=== PATIENT | female | born 1950 | race Caucasian/White ===

== ENCOUNTER 2019-02-18 16:30 | Outpatient (REF) | payer MEDICARE, OTHER, SELFPAY ==
[2019-02-18 22:29] LABS: Bacteria Many HPF (Negative); Crystals Negative HPF (Negative); Epithelial Cells Rare HPF (Negative); RBC Negative (0-2)
[2019-02-18 22:30] LABS: C & S Indicated? Yes; Mucus Negative (Negative)
== END 2019-02-18 16:50 ==
LOC: NCHCN 16:30
PROVIDERS: PCP Internal Medicine; Visit Provider Specialist/Technologist Athletic Trainer
DX: R35.0 Frequency of micturition (principal); N32.9 Bladder disorder, unspecified
CPT/HCPCS: 87077; 81015; 87086; 87186

== ENCOUNTER 2019-03-08 10:49 | Outpatient (CLI) | payer MEDICARE, OTHER, SELFPAY ==
--- NOTE | 2019-03-08 10:54 | DI.RAD_ITS ---
SYMPTOMS/DIAGNOSIS: RT WRIST PAIN, M25.531, MPM TRAUMATIC PAIN X 1 MONTH RIGHT WRIST: Three views. No priors. No acute fracture or dislocation is seen. There are post surgical changes of resection of the trapezium. There is deformity of the distal scaphoid which is likely chronic. The bones appear osteopenic. The soft tissues are unremarkable. IMPRESSION: Post surgical changes of the right wrist. No acute abnormality.
== END 2019-03-08 11:09 ==
PROVIDERS: PCP Internal Medicine; Visit Provider Internal Medicine
DX: M25.531 Pain in right wrist (principal); M85.88 Other specified disorders of bone density and structure, other site; Z98.890 Other specified postprocedural states
CPT/HCPCS: 73110

== ENCOUNTER → 2019-07-02 14:38 | Outpatient (BNVA) | payer MEDICARE, OTHER, SELFPAY | PROVIDERS: PCP Internal Medicine; Referring Provider Internal Medicine; Visit Provider Student in an Organized Health Care Education/Training Program | DX: M18.11 Unilateral primary osteoarthritis of first carpometacarpal joint, right hand (principal) | CPT/HCPCS: 99203; 99215 ==

== ENCOUNTER 2019-07-18 15:35 | Outpatient (REF) | payer MEDICARE, OTHER, SELFPAY ==
[2019-07-18 21:34] LABS: Calculated LDL 148 mg/dL; Cholesterol 220 mg/dL (50-200); HDL Cholesterol 43 mg/dL (40-60); Triglyceride 149 mg/dL (30-150)
== END 2019-07-18 15:55 ==
LOC: NCHCN 15:35
PROVIDERS: PCP Internal Medicine; Visit Provider Internal Medicine
DX: Z13.6 Encounter for screening for cardiovascular disorders (principal); R69 Illness, unspecified
CPT/HCPCS: 80061

== ENCOUNTER 2020-02-20 12:14 | Outpatient (CLI) | payer MEDICARE, OTHER, SELFPAY ==
--- NOTE | 2020-02-20 11:15 | DI.RAD_ITS ---
EXAM: XR WRIST RT COMPLETE CLINICAL HISTORY: right wrist pain TECHNIQUE: COMPARISON: No exams were available for comparison FINDINGS: Five views were obtained. There is absence of the greater multangular, presumably on a surgical basi s. Please correlate with surgical history. There are marked degenerative changes at lesser multangu lar 1st metacarpal joint. Mild degenerative changes noted involving remainder of the carpal joints. There is deformity of the distal aspect of the navicular, the base of the 1st metacarpal, and metaca rpal aspect of the lesser multangular. IMPRESSION:
== END 2020-02-20 12:34 ==
PROVIDERS: PCP Internal Medicine; Referring Provider Internal Medicine; Visit Provider Student in an Organized Health Care Education/Training Program
DX: M25.531 Pain in right wrist (principal); M18.11 Unilateral primary osteoarthritis of first carpometacarpal joint, right hand
CPT/HCPCS: 99213; 73110

== ENCOUNTER → 2020-09-14 13:54 | Outpatient (BNVA) | payer MEDICARE, OTHER, SELFPAY | PROVIDERS: PCP Internal Medicine; Referring Provider Internal Medicine; Visit Provider Nurse Practitioner Gerontology | DX: N39.46 Mixed incontinence (principal) | CPT/HCPCS: 99204; 99215 ==

== ENCOUNTER 2020-09-17 03:41 | Outpatient (CLI) | payer MEDICARE, OTHER, SELFPAY ==
--- NOTE | 2020-09-17 | DI.DEXA_ITS ---
EXAM: XR DEXA BONE DENSITY W/WO NANCY CLINICAL HISTORY: SCREENING FOR OSTEOPOROSIS IN POSTMENOPAUSAL WOMAN,Z78.0,H/O BREAST CA,Z85. TECHNIQUE: COMPARISON: No exams were available for comparison FINDINGS: DEXA scan was performed according to the usual protocol. Please see the accompanying data sheets. F indings for left hip scanning are T-score -0.7 with left femoral neck T-score -1.9. Findings for left forearm scanning are T-score -2.2 Prior scan April 2015 showed left hip T-score -0.3 and left forearm T-score -1.0. There are Villegas rods in the thoracolumbar spine bilaterally. The lateral vertebral scanogram is technically inadequate to exclude compression fracture. IMPRESSION: Findings consistent with osteopenia according to the WHO criteria. RADIATION DOSE DELIVERED: Total DLP
== END 2020-09-17 04:01 ==
PROVIDERS: PCP Internal Medicine; Visit Provider Internal Medicine
DX: Z78.0 Asymptomatic menopausal state (principal); M85.89 Other specified disorders of bone density and structure, multiple sites; Z85.3 Personal history of malignant neoplasm of breast
CPT/HCPCS: 77080

== ENCOUNTER → 2020-10-15 10:05 | Outpatient (BNVA) | payer MEDICARE, OTHER, SELFPAY | PROVIDERS: PCP Internal Medicine; Referring Provider Internal Medicine; Visit Provider Nurse Practitioner Gerontology | DX: N39.46 Mixed incontinence (principal) | CPT/HCPCS: 99213 ==

== ENCOUNTER → 2020-10-15 11:33 | Outpatient (BNVA) | payer MEDICARE, OTHER, SELFPAY | PROVIDERS: PCP Internal Medicine; Referring Provider Internal Medicine; Visit Provider Physical Therapy Assistant | DX: Z12.11 Encounter for screening for malignant neoplasm of colon (principal); Z86.010 Personal history of colon polyps ==

== ENCOUNTER 2020-10-16 02:10 | Outpatient (CLI) | payer MEDICARE, OTHER, SELFPAY ==
[2020-10-17 15:33] LABS: COVID-19 RT-PCR UVMMC Result Negative (Negative)
== END 2020-10-16 02:30 ==
PROVIDERS: PCP Internal Medicine; Visit Provider Nurse Practitioner
DX: Z11.59 Encounter for screening for other viral diseases (principal); Z01.818 Encounter for other preprocedural examination
CPT/HCPCS: U0003

== ENCOUNTER 2020-10-27 02:55 | Outpatient (CLI) | payer MEDICARE, OTHER, SELFPAY ==
[2020-10-28 17:18] LABS: COVID-19 RT-PCR UVMMC Result Negative (Negative)
== END 2020-10-27 03:15 ==
PROVIDERS: PCP Internal Medicine; Visit Provider Surgery
DX: Z11.52 Encounter for screening for COVID-19 (principal); Z01.818 Encounter for other preprocedural examination
CPT/HCPCS: U0003

== ENCOUNTER 2020-10-30 06:10 | Day surgery (SDC) | payer MEDICARE, OTHER, SELFPAY ==
[2020-10-30 06:45] VITALS: BP 139/83; PULSE 86; RESP 18; TEMP 36.6; O2SAT 94
[2020-10-30] MEDS: Lactated Ringers 1,000 ML 80 ML IV (07:10)
--- NOTE | 2020-10-30 08:00 | BOWEL_PTH ---
PATIENT: Lucy Larry LOC: [facility] U#:[id number] AGE/SX: 70/F ROOM: RE10/30/[address]: Dorys Cleveland : 1950 BED: DIS: 10/30/2020 SPEC #: [id number] RECD: 10/30/20 12:17 STATUS: SARAH RE #: [id number] SILVIA: 10/30/20 08:[address]: Dorys Cleveland DEPT: Surgical Specimen RECD BY: Radha Qureshi ENTERED: 10/30/20 12:18 SP TYPE: Bowel OTHR DR: Niles Barnett Tissues: 1 - BIOPSY BOWEL 2 - BIOPSY BOWEL Procedures: GROSS AND MICRO LEVEL 4 Comments: [id number]
--- NOTE | 2020-10-30 08:33 | W.COLOREPORT ---
Date of service: 10/30/20 Time of Service: 08:33 Colonoscopy Report Date of procedure: 10/30/20 Pre-op diagnosis general: hx of polyps Post-op diagnosis procedure note: other (severe diverticula/rectal prolapse ) Surgeon: Dorys Cleveland Anesthesia proc note operative: GETA Estimated blood loss (mL): 3 Pathology: other Disposition: same day Prep: Miralax/Dulcolax Retraction Time: 15 mins Procedure Description: After informed consent was obtained the patient was taken to the procedure room and placed in a left decubitous position. Monitors were applied and a time out was done. The patients name, date of , procedure, allergies to medications and metal in their body was reviewed. The patient was then sedated. Once sedated and comfortable a rectal exam was done. External exam was normal. Internal exam revealed a normal sphincter tone and no palpable masses. small inflammed ext hemorrhoid The scope was then introduced and retrofelexed. grade I internal hemorrhoids were identified. The scope was then advanced to the cecum w/out difficulty. The TI and appendiceal orifice were identified. The prep was good. The scope was then slowly retracted over 15 minutes back into the rectum. Polyps were removed at : Small flat polyp at 90 cm that is removed with a hot biting forcep- it is .75 cm in size. x3, 5 mm polyp removed at 20 cm removed by a by cold biting forcep. All specimens are retrieved and no bleeding is noted. She does have severe diverticular disease that is confined to the sigmoid colon. There is no signs of active bleeding or infection at this time. Her diverticula are quite large and very numerous. The scope was removed and the patient was woken up and taken back to Same day surgery in stable condition. The patient tolerated the procedure well and there were no immediate complications. Follow up: I will see what the pathology shows on her polyps. If they are simple adenomatous polyps, I do not think I would recommend repeat colonoscopy in her because of the severity of her diverticula. the risk of perforation outweighs the risk of colon cancer, unless they develop changes in bowel habits or other new gastrointestinal complaints.
[2020-10-30 08:59] VITALS: BP 130/74; PULSE 94; RESP 18; TEMP 36.3; O2SAT 94
--- NOTE | 2020-10-30 09:19 | PDOC.DSDIS_ITS ---
Discharge Plan Disposition Patient Disposition: HOME Condition: Good Discharge Details Reason For Visit: colon scope Attending Provider: Dorys Cleveland Primary Care Provider: Niles Barnett Home Meds and New Rx's Prescriptions: Continued Myrbetriq 50 mg tablet extended release 24 hr 50 mg PO DAILY Qty: 28 RF: 0 meloxicam 7.5 mg tablet 7.5 mg PO DAILY RF: 0 acetaminophen [Tylenol Extra Strength] 500 mg tablet 1,000 mg PO Q6H PRNRF: 0 Vitamin C 1,000 MG tablet extended release 1,000 mg PO BID RF: 0 ipratropium bromide 30 ML spray,non-aerosol 2 spry NS BID PRNRF: 0 cholecalciferol (vitamin D3) [Vitamin D3] 1,000 UNIT capsule 1,000 unit PO BID RF: 0 omeprazole magnesium [Prilosec OTC] 20 MG tablet,delayed release (DR/EC) 2 tab PO DAILY RF: 0 calcium carbonate 600 MG tablet 600 mg PO DAILY Qty: 2 RF: 0 MULTIVITAMIN tablet PO DAILY RF: 0 omega 8-zge-wrp-fish oil [Fish Oil] 1,000 MG capsule 1,000 mg PO DAILY RF: 0 loratadine 10 mg tablet 10 mg PO DAILY RF: 0 Denavir 1 % cream 1 applic topical ONCE PRNRF: 0 tumeric 500 mg PO DAILY RF: 0 nrlal-gyxos-1-fls-chq-tpdsuh [krill oil] 092-10-33-50 mg capsule 1 cap PO DAILY RF: 0 CBD oil 1,000 mg PO BID RF: 0 Discontinued bisacodyl [Dulcolax (bisacodyl)] 5 mg tablet,delayed release (DR/EC) 5 mg PO ONCE Qty: 4 RF: 0 polyethylene glycol 3350 17 gram/dose powder 17 g PO ONCE Qty: 238 RF: 0 Discharge Instructions Additional Instructions: Findings: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 The risk of perforation of the diverticula is higher than the risk of possible polyp recorence Please call if you develop: fevers >101.5 Nausea or Vomiting Abdominal pain that is not transient DAY SURGERY UNIT POST COLONOSCOPY INSTRUCTIONS 1. Because there will be medication in your system for the next 24 hours, you may feel a little sleepy. Your coordination will be affected. Therefore: a. Do not drive or operate dangerous equipment for 24 hours. b. Do not drink alcohol beverages for 24 hours (not even beer). c. Plan to go home and rest for the day. 2. Generally there are no restrictions on your activity after a day or so has gone by, but you may feel a bit fatigued for a few days. 3 After you arrive home you may have a light meal and return to a normal diet as you can tolerate it without feeling sick to your stomach. 4. After surgery, you may feel pain or discomfort. This should be only transi ent, but if it persists please contact your doctor. 5. If there are any questions regarding the findings of your procedure, please feel free to contact your doctor. 6. If you are unable to contact your doctor with a problem, contact the hospital at [phone]. 7. Continue all your regular medications unless directed otherwise. I understand the above instructions and have no questions. Signature of Patient or Responsible Adult Escort Date/Time Name of Responsible Adult Escort Signature of Nurse Date/Time DIVERTICULAR DISEASE OVERVIEW ? A diverticulum is a pouch-like structure that can form through points of weakness in the muscular wall of the colon (ie, at points where blood vessels pass through the wall). Diverticulosis affects men and women equally. The risk of diverticular disease increases with age. It occurs throughout the world but is seen more commonly in developed countries. WHAT IS DIVERTICULAR DISEASE? Diverticulosis ? Diverticulosis merely describes the presence of diverticula. Diverticulosis is often found during a test done for other reasons, such as flexible sigmoidoscopy, colonoscopy, or barium enema. Most people with diverticulosis have no symptoms and will remain symptom free for the rest of their lives. A person with diverticulosis may have diverticulitis, or diverticular bleeding. Diverticulitis ? Inflammation of a diverticulum (diverticulitis) occurs when there is thinning and breakdown of the diverticular wall. This may be caused by increased pressure within the colon or by hardened particles of stool, which can become lodged within the diverticulum. The symptoms of diverticulitis depend upon the degree of inflammation present. The most common symptom is pain in the left lower abdomen. Other symptoms can include nausea and vomiting, constipation, diarrhea, and urinary symptoms such as pain or burning when urinating or the frequent need to urinate. Diverticulitis is divided into simple and complicated forms. ?Simple diverticulitis, which accounts for 75 percent of cases, is not associated with complications and typically responds to medical treatment without surgery. ?Complicated diverticulitis occurs in 25 percent of cases and usually requires surgery. Complications associated with diverticulitis can include the following: ?Abscess ? a localized collection of pus ?Fistula ? an abnormal tract between two areas that are not normally connected (eg, bowel and bladder) ?Obstruction ? a blockage of the colon ?Peritonitis ? infection involving the space around the abdominal organ ?Sepsis ? overwhelming body-wide infection that can lead to failure of multiple organs Diverticular bleeding ? Diverticular bleeding occurs when a small artery located within a diverticulum is eroded and bleeds into the colon. Diverticular bleeding usually causes painless bleeding from the rectum. In approximately 50 percent of cases, the person will see maroon or bright red blood with bowel movements. Is bleeding with a bowel movement normal? ? It is not normal to see blood in a bowel movement; this can be a sign of several conditions, most of which are not serious (eg, hemorrhoids) but some of which are serious and require immediate treatment. Anyone who sees blood after a bowel movement should consult with their healthcare provider to determine if further testing or evaluation is needed. DIVERTICULOSIS AND DIVERTICULITIS DIAGNOSIS ? Diverticulosis is often found during tests performed for other reasons. ?Barium enema ? This is an x-ray study that uses barium in an enema to view the outline of the lower intestinal tract. This is an older test and has been largely replaced by computed tomography (CT) scan. ?Flexible sigmoidoscopy ? This is an examination of the inside of the sigmoid colon with a thin, flexible tube that contains a camera. ?Colonoscopy ? This is an examination of the inside of the entire colon. ?CT scan ? A CT scan is often used to diagnose diverticulitis and its complications. If diverticulitis (not just diverticulosis) is suspected, the above three tests should not be used because of the risk of perforation. TREATMENT Diverticulosis ? People with diverticulosis who do not have symptoms do not require treatment. However, most clinicians recommend increasing fiber in the diet, which can help to bulk the stools and possibly prevent the development of new diverticula, diverticulitis, or diverticular bleeding. Fiber is not proven to prevent these conditions in all patients but may help to control recurrent episodes in some. Increase fiber ? Fruits and vegetables are a good source of fiber. Fiber content of packaged foods can be calculated by reading the nutrition label. Seeds and nuts ? Patients with diverticular disease have historically been advised to avoid whole pieces of fiber (such as seeds, corn, and nuts) because of concern that these foods could cause an episode of diverticulitis. However, this belief is completely unproven. We do not suggest that patients with dive rticulosis avoid seeds, corn, or nuts. Diverticulitis ? Treatment of diverticulitis depends upon how severe your symptoms are. Home treatment ? If you have mild symptoms of diverticulitis (mild abdominal pain, usually left lower abdomen), you can be treated at home with a clear liquid diet and oral antibiotics. However, if you develop one or more of the following signs or symptoms, you should seek immediate medical attention: ?Temperature >100.1?F (38?C) ?Worsening or severe abdominal pain ?An inability to tolerate fluids Hospital treatment ? If you have moderate to severe symptoms, you may be hospitalized for treatment. During this time, you are not allowed to eat or drink; antibiotics and fluids are given into a vein. If you develop an abscess of the colon, you may require drainage of the abscess (usually performed by placing a drainage tube across the abdominal wall) or by surgically opening the affected area. Surgery ? If you develop a generalized infection in the abdomen (peritonitis), you will usually require an emergency operation. A two-part operation may be necessary in some cases. ?The first operation involves removal of the diseased colon and creation of a colostomy. A colostomy is an opening between the colon and the skin, where a bag is attached to collect waste from the intestine. The lower end of the colon is temporarily sewed closed to allow it to heal. ?Approximately three to six months later, a second operation is performed to reconnect the two parts of the colon and close the opening in the skin. You are then able to empty your bowels through the rectum. Sometimes patients require up to a year to recover from the first operation, depending on how sick they were. In non-emergency situations, the diseased area of the colon can be removed and the two ends of the colon can be reconnected in one operation, without the need for a colostomy. Surgery versus medical therapy ? An operation to remove the diseased area of the colon may be necessary if you do not improve with medical therapy. After an episode of uncomplicated diverticulitis, elective surgery is generally not required as the risk of another attack or requiring emergency surgery is low. However, patients with persistent symptoms attributable to diverticulitis, a history of complicated diverticulitis, or a compromised immune system should be evaluated for possible surgery to prevent another attack. In such patients, another attack has been associated with a higher risk of complications or . Of course, the decision will also depend in part upon your other medical conditions and ability to undergo surgery. In many cases, an elective operation can be performed laparoscopically, using small incisions, rather than the typical vertical (up and down) abdominal incision. Laparoscopic surgery usually allows you to recover more quickly and shortens the hospital stay. After diverticulitis resolves ? After an episode of diverticulitis resolves, if you have not had a recent colonoscopy, the entire length of the colon should be evaluated to determine the extent of disease and to rule out the presence of abnormal lesions such as polyps or cancer. Recommended tests include colonoscop y, barium enema and sigmoidoscopy, or CT colonography. Diverticular bleeding ? Most cases of diverticular bleeding resolve on their own. However, some people will need further testing or treatment to stop bleeding, which may include a colonoscopy, angiography (a treatment that blocks off the bleeding artery), bleeding scan, or surgery. DIVERTICULAR DISEASE PROGNOSIS Diverticulosis ? Over time, diverticulosis may cause no problems or it may cause episodes of bleeding and/or diverticulitis. Approximately 15 to 25 percent of people with diverticulosis will develop diverticulitis, while 5 to 15 percent will develop diverticular bleeding. Diverticulitis ? Approximately 85 percent of people with uncomplicated diverticulitis will respond to medical treatment, while approximately 15 percent of patients will need an operation. After successful treatment for a first attack of diverticulitis, one-third of patients will remain asymptomatic, one- third will have episodic cramps without diverticulitis, and one-third will go on to have a second attack of diverticulitis. The prognosis tends to remain similar following a second attack of diverticulitis. Only 10 percent of people remain symptom-free after a second attack. Subsequent attacks tend to be of similar severity, not increasing in severity as previously believed. High Fiber Diet What is Dietary Fiber? All fiber comes from plants, bushes, dayana or trees. Of course, the ones that we eat provide us with fruits, vegetables and grains. There are many different types of fiber but the three that are most important to the health of the body are: Insoluble Fiber This fiber does not dissolve in water, nor is it fermented by the bacteria residing in the colon. Rather, it retains water and in so doing, helps to promote a larger, bulkier and more regular bowel activity. This, in turn, may be important in preventing disorder such as diverticulosis and hemorrhoids, and in sweeping out certain toxins and cancer causing carcinogens. Sources of insoluble fiber are: ? whole grain wheat and other whole grains ? corn bran, including popcorn, unflavored and unsweetened ? nuts and seeds ? potatoes and the skins from most fruits from trees such as apples, bananas and avocados ? many green vegetables such as green beans, zucchini, celery and cauliflower ? some fruit plants such as tomatoes and kiwi Soluble Fiber These fibers are fermented or used by the colon bacteria as a food source or nourishment. When these good bacteria grow and thrive, many health benefits occur in both the colon and the body. Soluble fiber is present in some degree in most edible plant foods, but the ones with the most soluble fiber include: ? legumes such as peas and most beans, including soybeans ? oats, rye and barley ? many fruits such as berries, plums, apples bananas and pears ? certain vegetables such as broccoli and carrots ? most root vegetables ? psyllium husk supplement products Prebiotic Soluble Fiber These are relatively newly discovered soluble plant fibers. The technical name for this fiber is inulin or fructan. When these soluble fibers are fermented by the good colon bacteria, some further significant health benefits have been shown to occur by research in many medical centers. These soluble prebiotic fibers occur in significant amounts in: ? asparagus ? yams ? onions ? garlic ? bananas ? leeks ? agave ? chicory and other root vegetables such as [place] artichokes ? wheat, rye and barley (smaller amounts) Benefits of a High Fiber Diet The health benefits of a high fiber diet, consumed on a regular basis and reaching recommended amounts (below), are now fairly well-defined. There are some additional benefits in the early research stage with the prebiotic soluble fibers. What is now known regarding a high fiber diet include: Bowel Regularity A high fiber diet promotes regularity with a softer, bulkier and regular stool pattern. This decreases the chance of hemorrhoids, diverticulosis and perhaps colon cancer. Cholesterol and Reduced Triglycerides The soluble fibers are the ones that will reduce cholesterol levels when used on a regular basis. Psyllium husk and prebiotic soluble fiber will also reduce cholesterol. They may also reduce the incidence of coronary heart disease. Oats, flax seeds and legumes or beans are the recommended fibers. Colon Polyps and Cancer It is still not certain if a high fiber diet helps prevent colon cancer. Considerable research suggests that this may occur. Certainly it makes sense to increase regularity and so speed the movement of cancer causing carcinogens through the bowel. In addition, reducing a heavy meat diet reduces the bile flow from the liver in a favorable way. This, too, reduces the amount of carcinogens that reach and are manufactured in the colon. Finally, a high fiber diet, including prebiotic soluble fiber, increases the integrity and health of the wall of the colon. The risk of cancer may be reduced. Colon Wall Integrity A high fiber diet changes the bacterial makeup of the colon toward a more favorable balance. For instance, it is known that those people with obesity, diabetes type 2 and inflammatory bowel disease have a predominance of bad bacteria in the colon. This, in turn, may render the bowel wall weak and allow bacteria and, indeed, even toxins to seep through. A high fiber diet with a modest reduction in animal and meat products may return the bacterial makeup to a more positive balance. This, in particular, has been seen when the soluble fiber prebiotics are added to the diet. Blood Sugar Soluble fiber such as in legumes (beans), oats and in prebiotic fibers slows the absorption of blood sugar and so helps regulate the sugar in the blood. Insoluble fiber on a regular basis is associated with reduced risk of type 2 diabetes. Weight Loss High fiber diets are more filling and give a sense of fullness sooner than an animal and meat based diet does. In addition, the soluble prebiotic fibers have been shown to turn off the hunger hormones produced in the wall of the gut and to increase the hormones that give a sense of fullness. Those hormones are made in the wall of the gut. New medical research has shown that the bacterial makeup in the colon in overweight people is abnormal to the extent that they manufacture and absorb almost twice the number of calories through the colon wall as do normals. Prebiotic fibers (below) will help change this hormonal balancein a favorable way. Bacteria and the Function of the Colon The colon finishes the digestive process. Hopefully, the waste products move through in a nice regular manner. Insoluble fibers help this process by retaining water and so producing a bulkier, softer stool, which is easy to pass. The additional role of the colon is to provide a home for an enormous number of micro-organisms, mostly bacteria. Recent research has shown that there are over 1,000 species of bacteria with a total bacterial count ten times the number of cells in the body. These bacteria play a major role in keeping the colon wall itself healthy. In addition, these good bacteria produce a very strong immune system for the body. They significantly increase calcium absorption and bone density. They provide other documented benefits. It is the soluble fibers in the diet that are so effective in stimulating the growth of good colon bacteria. How Much is Enough? The amount of fiber in food is measured in grams. National nutritional authorities recommend the following amounts of dietary fiber daily. Under Age 50 Over Age 50 Men 38 grams 30 grams Women 25 grams 21 grams For a week or so, it is best to tally the amount of fiber you are consuming. Boxed and packaged foods will have the amount of fiber per serving on the nutri tion label. Which Fibers and Which Foods are Best? As noted, healthy fiber is only found in plants. The three major categories are whole grains, fruits and vegetables. Whole Grains Wheat, oats, barley, wild or brown rice, amaranth, buckwheat, bulgur, corn, millet, quinoa, rye, sorghum, teff and triticals. By far, wheat, oats and wild or brown rice are most common. Always buy whole grain products. White bread, baked goods and rolls almost always are made from wheat flour. Wheat flour is white because most of the fiber, vitamins and other nutrients have been removed. Try not buy enriched grains. What this means is that simple white flour has had vitamins added to it by the bookkeeping clerks supervisor. The word, enriched, implies a good and healthy product. On the contrary, enriched means that most of the fiber has been removed and a few vitamins added. Fruits Fruits come from trees such as apple and pear or from bushes or dayana. You should eat a wide variety of fruits, preferably with every meal. In many cases, the skin of a fruit such as apple will contain much of the insoluble fiber while the pulp contains most of the soluble fiber. To the extent possible, buy organic fruits as these will have little or no pesticides. Always wash fruit. Vegetables Eat a wide variety of vegetables. They should be a mainstay of lunch and dinners. Frozen vegetables retain as much nutrition and fiber as fresh veg etables. As with fruit, try to buy organic to reduce any residual pesticide ingestion. Wash fresh vegetables thoroughly. Cruciferous vegetables such as broccoli, [place] sprouts and cauliflower conta in certain chemicals such as sulforaphane. This substance has very strong anti- cancer properties and should be eaten frequently. Legumes, Beans, Peas and Soybeans These vegetables have plenty of soluble fiber and should be part of a varied vegetable intake. Beans, in particular, contain a certain type of fiber that may lead to harmless gas or bloating. Nuts and Seeds These are rich sources of fiber and are a good substitute for sweets such as candies and baked sweet goods. While nuts and seeds are rich in fiber, they also contain vegetable fat and so can and do add calories. Read the Labels As noted, fresh and frozen foods are usually better. They have good nutrition and few, if any, chemicals added to them. When buying packaged foods and, in particular grains, look for three things: ? The first word on the label should be whole, such as whole wheat or whole grain. ? Check out the calories and the amount of fiber in a serving. ? How many and what other additives or chemicals are added. Fewer is always better. Do you know what each additive does? Some are added not for the benefit of the construction superintendent but rather for manufacturers. These could and do include sugar, artificial flavor, chemicals to prevent oxidation and spoilage, emulsifiers to blend the product. You have to be a seed production field supervisor. Fiber Facts, Nuggets and Pearls ? For breakfast you can easily get the day started well by using a high fiber, whole grain cereal. Check the labels. Add fruit such as blueberries and bananas. If you are an egg eater, use whole wheat or grain toast. Adding wheat germ gives you a good fiber kick. ? Always use whole grain or wheat with rolls and sandwiches. Does your fast food store not have them? Perhaps you look elsewhere. Eating an occasional black kramer or veggie burger provides variety. ? Snacks should consist of fruit and/or nuts. While nuts are loaded with fiber, they are an energy rich food, meaning they have a lot of calories in a small packet. ? Fruit juices should contain pulp. Clear juices such as clear orange, pear or apple juice contain little fiber and have a lot of fructose. Prune juice is usually high in fiber. ? Homemade soups ? adding fresh or frozen vegetables to a chicken or vegetable stock is a good way to start homemade soup. ? Salads ? adding cooked and then chilled vegetables provide great flavoring to almost any salad. Remember, a narayanan salad has lots of cooked corn in it. Small slices of apples or oranges and nuts such as chopped walnuts or sliced almonds always adds taste, variety and fiber to almost any salad. ? Fruit ? Try to eat fruit of some type with almost every meal. ? Rethink how you place the various foods on your dinner plate. Reducing the portions of the meat or animal food portion to the side with equal or more portions of vegetables, legumes and fruits portion always allows for more fiber. There was never anything magic about making the meat or animal food portion the main part of the dinner plate. Eating from smaller plates can, over time, trick your mind and detention habit of using a dinner plate. Again, there is nothing magic in an 11, 12, or 13 inch dinner plate. Fiber Supplements There are a variety of fiber supplements available on the food or pharmacy shelves. Psyllium This soluble plant fiber has been used in [place] for over 2,000 years. It is a soluble fiber with mucilage in it. This acts to retain a lot of water and also is fermented by colon bacteria. When 7 grams a day are used, it does lower cholesterol. Metamucil in various forms is psyllium. Methyl Cellulose All the cellulose products come from finely ground wood chips which are then treated in a variety of ways such as boiling in acids. Methyl cellulose is an insoluble fiber which does dissolve in water. It is also an emulsifier, meaning it blends oils and water. Citrucel is methyl cellulose (MC). MC may not be appropriate for Crohn?s disease or ulcerative colitis as several medical studies have shown that certain emulsifiers dissolve the mucous lining of the colon in animals prone to Crohn?s disease. This then allows bacteria to invade the underlying tissue. Inulin Inulin is a soluble prebiotic fiber found in many foods and which are fermented mostly in the left side of the colon. It is available in a supplement as generic inulin and in Fiber Choice. Oligofructose FOS These are also prebiotic fibers. They are fermented very quickly in the right side of the colon. Prebiotin This product is a combination of oligofructose, which feeds the bacteria in the right side of the colon and inulin, which does the same in the left side of the colon. There seems to be a benefit for this particular formula based on medical research. Prebiotic Soluble Fiber These may be the healthiest of all the soluble fibers. They grow in many plants and have had a great deal of research done on them in the last 10-15 years. These fibers are found in asparagus, yams and other root vegetables such as chicory, garlic, onion, leeks and in smaller amounts in wheat. This research has shown the following: ? Increase in good and decrease in bad colon bacteria ? Increase calcium absorption and enhanced bone mass ? Enhanced immune system ? Appetite and weight control by changing the hormone appetite signals to the brain ? May decrease colon cancer incidence ? Reduce or correct a leaky colon Eating a wide variety of plant food up to the recommended amount will likely give you enough prebiotic fiber. Supplements such as Prebiotin can be added to the diet. Short Chain Fatty Acids (SCFA) Some rather remarkable research findings have shown that one of the benefits of ingesting a lot of soluble fiber, in particular the prebiotic ones, results in larger amounts of SCFAs in the colon. These SCFAs are made by the good bacteria in the colon such as Bifidobacter and Lactobacillus. These small molecules have been shown to do the following: ? Enhance the health and integrity of the colon wall ? Provide nourishment for the cells that actually line the colon ? Increases the acidity of the colon which is a very real health benefit ? Stabilize blood sugar for diabetics ? Reduce blood cholesterol and triglyceride ? Significantly enhance immunity ? May be a benefit for Crohn?s disease and ulcerative colitis patients Fiber and Gas Everyone has intestinal gas and that is a good thing. It means that bacteria, hopefully the good ones, are thriving. The normal amount of flatus passed each day depends on sex and what is eaten. The normal number of flatus is 10-20 times a day. When the bacteria that make intestinal gases are growing, it also means that other good bacteria are using the same fibers to grow and produce multiple health benefits, including the production of healthy short-chain fatty acids. These substances are produced quietly in the colon and produce many health-related outcomes. Soluble fiber should always be used in a gradual manner. If too much is consumed at any one time, then excess, but harmless, intestinal gas can occur. People with irritable bowel syndrome are particularly prone to bloating and mild cramping. In this instance, soluble fiber in the diet or supplement should be used in small doses and increased gradually. Finally, prebiotic fibers tend to cause the production of short-chain fatty acids which acidify the colon. This, in turn, reduces or stops the growth of bacteria that make the smelly hydrogen sulfide gases that produce noxious flatus. People who consume many vegetables with prebiotics or take a prebiotic fiber supplement often have non-odoriferous flatus. Fiber and Irritable Bowel Syndrome Irritable bowel syndrome (IBS) is one of the most common disorders of the lower digestive tract. The symptoms of IBS can be quite varied. They can be a mix of several symptoms such as constipation, diarrhea, crampy abdominal discomfort, bloating and gas. An attack of IBS can be triggered by emotional tension and anxiety, poor dietary habits and certain medications. It is now known that infections in the intestine can lead to long-term IBS symptoms. Increased amounts of fiber in the diet can help relieve the symptoms of irritable bowel syndrome by producing soft, bulky stools. This helps to normalize the time it takes for the stool to pass through the colon. Recent medical research with newer techniques has shown some surprising and dramatic findings for IBS teddy ents. Specifically, there is a very significant and abnormal shift of bacteria from those that provide health benefits to those bad bacteria that we really do not want in the gut. The technical name for this bad group of bacteria is called Firmicutes. Along with this abnormal bacterial collection, there is a smoldering low-grade inflammation in the gut wall that may contribute to symptoms. The goal for IBS patients should be to gradually increase the soluble dietary fibers in the diet so as to promote the growth of good bacteria and so suppress the bad ones along with the associated inflammation. IBS patients need to be careful of the amount of soluble fiber they consume. The reason for this is that, while the good colon bacteria thrive on these fibers and produce health benefits, other gas-forming bacteria may generate excessive but harmless gas and subsequent bloating. Thus, soluble plant fibers or a dietary prebiotic supplement should be taken in small initial doses and then gradually increased to tolerance. Fiber and Colon Polyps/Cancer Colon cancer is a major health problem. This disease is most common in Western cultures. It is not seen very often in rural cultures where the diet is mostly plant based. Usually, colon cancer starts out as a colon polyp, a benign mushroom-shaped growth. In time it grows, and in some people it becomes cancerous. Colon cancer is usually always curable if polyps are removed when found or if surgery is performed at an early stage. It is now known that people can inherit the risk of developing colon cancer, but diet is important, too. As noted, there is a very low rate of colon cancer in residents of countries where grains are unprocessed and retain their fiber. It seems that in the [place] world, cancer-containing agents (carcinogens) remain in contact with the colon wall for a longer time and in higher concentrations. So, a large bulky stool may act to dilute these carcinogens by moving them through the bowel more quickly. Less carcinogenic exposure to the colon may mean fewer colon polyps and less cancer. A very current review of the entire world?s literature on the effect of fiber on colon polyps and cancer prevention has shown rather clearly that for every 10 grams of fiber added to the diet, there is a 10% reduction in incidence of colon cancer. So the recommended 30 gram fiber diet would result in a 30% l ess chance of getting these tumors. There are also substances produced in the colon by the good bacteria that seem to retard certain pre-cancer factors from developing. They are called short- chain fatty acids (SCFA). See above for description of SCFAs. A high fiber diet increases these substances. So, the combination of dietary fiber and the production of short-chain fatty acids have a clear health benefit. Fiber and Diverticulosis Prolonged, vigorous contraction of the colon over a long period of time may result in diverticulosis. This increased pressure causes small and, eventually, larger ballooning pockets to form. These pockets by themselves cause no problem. However, sometimes they become infected (diverticulitis) or even break open (perforate) causing infection or inflammation within the abdomen (peritonitis). A high fiber diet increases the bulk in the stool and thereby reduces the pressure within the colon. By so doing, the formation of pockets may be reduced or possibly even stopped. In the past, many physicians were fearful that seeds as in tomatoes, nuts or berries were harmful and could get inside these pockets and rattle around, causing damage. We now know that this has never been the case and that these foods contain lots of fiber and are actually beneficial for diverticulosis patients. Certain bulking agents such as psyllium are traditional types of bulk producing supplements. Psyllium is a soluble fiber. Combining it with insoluble fiber as in wheat bran or corn bran (no gluten) can enhance this bulking effect even more. A product containing a prebiotic, psyllium and wheat bran is probably a very good combination for bowel regularity. Prebiotin Regularity/Diverticulosis is one such product. Activity:: no lifting over 20#'s or strenuous acitivty x 24hrs Diet:: small light meals x 24 hrs Discharge Orders Discharge Orders: Discharge Order (Routine); Ordered 10/30/20 Ordered By: Dorys [place] DS: Diagnosis Discharge Diagnosis (1) Rectocele: Status: Acute (2) Diverticula of colon: Status: Acute (3) Adenomatous colon polyp: Status: Acute (4) Hemorrhoid: Status: Acute
== END 2020-10-30 10:04 | disposition home or self-care (01) ==
PROVIDERS: PCP Internal Medicine; Visit Provider Surgery
PROC: 0DJD8ZZ Inspection of Lower Intestinal Tract, Via Natural or Artificial Opening Endoscopic (ICD-10-PCS; CPT 45378; principal; 2020-10-30 07:30)
DX: Z12.11 Encounter for screening for malignant neoplasm of colon (principal); Z86.010 Personal history of colon polyps; K64.8 Other hemorrhoids; K57.30 Diverticulosis of large intestine without perforation or abscess without bleeding; D12.6 Benign neoplasm of colon, unspecified; K62.3 Rectal prolapse
CPT/HCPCS: 45384; 45380; 88305; J2001

== ENCOUNTER → 2020-11-12 09:18 | Outpatient (BNVA) | payer MEDICARE, OTHER, SELFPAY | PROVIDERS: PCP Internal Medicine; Referring Provider Internal Medicine; Visit Provider Nurse Practitioner Gerontology | DX: N39.46 Mixed incontinence (principal) | CPT/HCPCS: 99214 ==

== ENCOUNTER 2021-01-14 17:03 | Outpatient (REF) | payer MEDICARE, OTHER, SELFPAY ==
[2021-01-14 13:07] LABS: Anion Gap 6.3 mmol/L (3-11); BUN 29 mg/dL (7-18); CO2 28.7 mmol/L (21.0-32.0); CREATININE 0.8 mg/dL (0.55-1.02); Calcium 9.9 mg/dL (8.5-10.1); Chloride 106 mmol/L (98-107); Glucose 111 mg/dL (74-106); Potassium 5.5 mmol/L (3.5-5.1); Sodium 141 mmol/L (136-145)
== END 2021-01-14 17:04 | disposition home or self-care (01) ==
LOC: NCHCN 17:03
PROVIDERS: PCP Internal Medicine; Visit Provider Internal Medicine
DX: F41.8 Other specified anxiety disorders (principal); Z87.442 Personal history of urinary calculi
CPT/HCPCS: 80048

== ENCOUNTER 2021-01-26 08:47 | Outpatient (CLI) | payer MEDICARE, OTHER, SELFPAY ==
--- NOTE | 2021-01-26 08:00 | DI.RAD_ITS ---
EXAM: XR SHOULDER LT COMPLETE 2+V CLINICAL HISTORY: left shoulder pain TECHNIQUE: COMPARISON: No exams were available for comparison FINDINGS: Two views were obtained. There is moderate narrowing of the cartilaginous joint space of the glenohu meral joint. There is mild subchondral sclerosis of the adjacent bones. There is prominent inferior marginal osteophyte formation of the humeral head and to a lesser degree circumferentially of the gl enoid and humeral head. There are few subchondral cysts of the humeral head and glenoid. There are moderate hypertrophic degenerative changes at the acromioclavicular joint. IMPRESSION: Severe DJD glenohumeral joint. RADIATION DOSE DELIVERED: Total DLP
--- NOTE | 2021-01-26 08:00 | DI.RAD_ITS ---
EXAM: XR SHOULDER RT COMPLETE 2+V CLINICAL HISTORY: right shoulder pain TECHNIQUE: COMPARISON: CR XR SHOULDER LT COMPLETE 2+V from 01/26/2021 FINDINGS: Two views were obtained. There is moderate to severe narrowing of the cartilaginous joint space of g lenohumeral joint. There are very prominent inferior marginal osteophytes of the humeral head and mo derate osteophytes of the glenoid and humeral head. Mild subchondral sclerosis and cyst formation of the glenoid and humeral head noted, mild flattening of the glenoid noted. There are soft tissue josiah cifications projected in the region of the biceps tendon at the level of the humeral neck. There are mild degenerative changes of the AC joint. IMPRESSION: Severe DJD glenohumeral joint RADIATION DOSE DELIVERED: Total DLP
== END 2021-01-26 08:48 | disposition home or self-care (01) ==
LOC: DIORS 08:47
PROVIDERS: PCP Internal Medicine; Referring Provider Internal Medicine; Visit Provider Student in an Organized Health Care Education/Training Program
DX: M25.511 Pain in right shoulder (principal); M19.011 Primary osteoarthritis, right shoulder; M25.512 Pain in left shoulder; M19.012 Primary osteoarthritis, left shoulder; M75.21 Bicipital tendinitis, right shoulder; M75.22 Bicipital tendinitis, left shoulder
CPT/HCPCS: 99213; 99214; 73030

== ENCOUNTER → 2021-02-10 09:34 | Outpatient (BNVA) | payer MEDICARE, OTHER, SELFPAY | PROVIDERS: PCP Internal Medicine; Referring Provider Internal Medicine; Visit Provider Nurse Practitioner Gerontology | DX: N39.46 Mixed incontinence (principal); Z79.899 Other long term (current) drug therapy | CPT/HCPCS: 99213 ==

== ENCOUNTER 2021-02-12 17:55 | Outpatient (REF) | payer MEDICARE, OTHER, SELFPAY ==
[2021-02-12 14:20] LABS: Anion Gap 11.6 mmol/L (3-11); BUN 30 mg/dL (7-18); CO2 23.4 mmol/L (21.0-32.0); CREATININE 0.7 mg/dL (0.55-1.02); Chloride 108 mmol/L (98-107); Glucose 106 mg/dL (74-106); Potassium 4.8 mmol/L (3.5-5.1); Sodium 143 mmol/L (136-145)
== END 2021-02-12 17:56 | disposition home or self-care (01) ==
LOC: NCHCN 17:55
PROVIDERS: PCP Internal Medicine; Visit Provider Internal Medicine
DX: E87.5 Hyperkalemia (principal)
CPT/HCPCS: 80048

== ENCOUNTER 2021-04-13 11:08 | Outpatient (CLI) | payer MEDICARE, OTHER, SELFPAY ==
--- NOTE | 2021-04-13 11:00 | DI.RAD_ITS ---
Exam(s) XR FOOT LT COMPLETE EXAM: XR FOOT LT COMPLETE CLINICAL HISTORY: foot pain. TECHNIQUE: 2D digital imaging was performed. COMPARISON: No exams were available for comparison FINDINGS: BONES: No acute fracture is present. No bony destructive lesion is seen. JOINTS: No dislocation present. Mild degenerative changes are seen in the interphalangeal joints of t he foot. There is a small plantar calcaneal spur. SOFT TISSUE: Normal. IMPRESSION: Mild degenerative changes of the foot. DATA REPOSITORY: RADIATION DOSE DELIVERED:
== END 2021-04-13 11:09 | disposition home or self-care (01) ==
LOC: DIORS 11:08
PROVIDERS: PCP Internal Medicine; Referring Provider Internal Medicine; Visit Provider Student in an Organized Health Care Education/Training Program
DX: M79.671 Pain in right foot (principal); M79.672 Pain in left foot; M67.88 Other specified disorders of synovium and tendon, other site; M54.9 Dorsalgia, unspecified
CPT/HCPCS: 99213; 99214; 73630

== ENCOUNTER 2021-06-21 20:26 | Outpatient (REF) | payer MEDICARE, OTHER, SELFPAY ==
[2021-06-21 21:48] LABS: ALT 30 U/L (14-59); AST 13 U/L (15-37); Alkaline Phosphatase 83 U/L (46-116); Anion Gap 10.4 mmol/L (3-11); BUN 23 mg/dL (7-18); Bilirubin, Total 0.4 mg/dL (0.2-1.0); CO2 26.6 mmol/L (21.0-32.0); CREATININE 0.8 mg/dL (0.55-1.02); Calcium 9.3 mg/dL (8.5-10.1); Calculated LDL 149 mg/dL (<100); Chloride 107 mmol/L (98-107); Cholesterol 220 mg/dL (<200); Glucose 92 mg/dL (74-106); HDL Cholesterol 46 mg/dL (40-60); Potassium 4.7 mmol/L (3.5-5.1); Sodium 144 mmol/L (136-145); Total Protein 7.2 g/dL (6.4-8.2); Triglyceride 128 mg/dL (<150)
== END 2021-06-21 20:27 | disposition home or self-care (01) ==
LOC: NCHCN 20:26
PROVIDERS: PCP Internal Medicine; Visit Provider Physician Assistant Medical
DX: R03.0 Elevated blood-pressure reading, without diagnosis of hypertension (principal)
CPT/HCPCS: 80053; 80061; 83036

== ENCOUNTER 2021-07-20 16:19 | Outpatient (REF) | payer MEDICARE, OTHER, SELFPAY ==
[2021-07-22 16:40] LABS: COVID-19 RT-PCR UVMMC Result Negative (Negative)
== END 2021-07-20 16:20 | disposition home or self-care (01) ==
LOC: NCHCN 16:19
PROVIDERS: PCP Internal Medicine; Visit Provider Physician Assistant Medical
DX: Z20.822 Contact with and (suspected) exposure to COVID-19 (principal); J06.9 Acute upper respiratory infection, unspecified
CPT/HCPCS: U0003

== ENCOUNTER → 2021-07-27 09:09 | Outpatient (BNVA) | payer MEDICARE, OTHER, SELFPAY | PROVIDERS: PCP Physician Assistant Medical; Referring Provider Internal Medicine; Visit Provider Nurse Practitioner Gerontology | DX: N39.46 Mixed incontinence (principal); Z79.899 Other long term (current) drug therapy | CPT/HCPCS: 99213 ==

== ENCOUNTER 2021-09-22 01:19 | Outpatient (CLI) | payer MEDICARE, OTHER, SELFPAY ==
[2021-09-22 08:34] LABS: Hemoglobin A1C 5.6 % (<5.7)
[2021-09-22 09:15] LABS: ALT 30 U/L (14-59); AST 13 U/L (15-37); Albumin 4.1 g/dL (3.4-5.0); Alkaline Phosphatase 59 U/L (46-116); BUN 22 mg/dL (7-18); Bilirubin, Total 0.5 mg/dL (0.2-1.0); CREATININE 0.8 mg/dL (0.55-1.02); Calcium 10.4 mg/dL (8.5-10.1); Calculated LDL 76 mg/dL (<100); Chloride 106 mmol/L (98-107); Cholesterol 139 mg/dL (<200); Glucose 93 mg/dL (74-106); HDL Cholesterol 50 mg/dL (40-60); Potassium 4.4 mmol/L (3.5-5.1); Sodium 143 mmol/L (136-145); Total Protein 7.3 g/dL (6.4-8.2); Triglyceride 66 mg/dL (<150)
== END 2021-09-22 01:20 | disposition home or self-care (01) ==
LOC: LBO 01:19
PROVIDERS: PCP Physician Assistant Medical; Visit Provider Physician Assistant Medical
DX: E78.5 Hyperlipidemia, unspecified (principal); R73.03 Prediabetes
CPT/HCPCS: 36415; 80053; 80061; 83036

== ENCOUNTER 2021-12-04 12:35 | Emergency (ER) | payer MEDICARE, SELFPAY ==
[2021-12-04 12:57] VITALS: BP 123/48; PULSE 69; RESP 14; O2SAT 96
--- NOTE | 2021-12-04 13:15 | DI.CT_ITS ---
Exam(s) CT ABDOMEN PELVIS W EXAM: CT ABDOMEN PELVIS W CLINICAL HISTORY: rlq abdominal pain, possible hernia, inguinal TECHNIQUE: Imaging Protocol: Axial computed tomography images with coronal and sagittal reformatted images were created and reviewed CONTRAST MATERIAL: Intravenous: Omnipaque 350 Contrast volume:100 mL Oral: No COMPARISON: CT ABD PELVIS WITH CONTRAST from 02/08/2018 FINDINGS: ABDOMEN: Lung Bases: Normal where visualized. Small hiatal hernia. Liver: Normal density. No measurable mass. Portal, Superior Mesenteric, and Splenic Veins: Unremarkable. Gallbladder and Biliary Tract: Cholelithiasis. No biliary ductal dilatation. Pancreas: Normal density, no abnormal calcifications or inflammatory process. Spleen: Normal. Adrenals: No masses seen. Kidneys: Normal size, contour and axis. There is a 6 mm stone in the distal ureter approximately 5 cm from the left UVJ. There is mild hydronephrosis. There is a nonobstructing stone in the lower pole of the left kidney. No masses seen. Abdominal Aorta: Abdominal portion non-dilated. Atherosclerosis. Bowel: No obstruction or bowel wall thickening. Appendix is unremarkable. There is diverticulosis see n in the colon but no evidence of acute diverticulitis. There is a loop of small bowel in a right in guinal hernia. There is no evidence of obstruction or incarceration. Peritoneal Cavity: No ascites, collection or mesenteric inflammatory response. No free air. Lymph Nodes: Within normal limits. Bones: Within normal limits for the patient's age. Since the prior examination, Villegas rods are seen extending from the lower thoracic spine into the pelvis. There is a marked left convex scoliosi s.. Soft Tissues: Unremarkable. PELVIS: Bladder: Symmetric distention, no gross wall thickening. Reproductive Organs: Status post hysterectomy. Lymph Nodes: Within normal limits. Bones: Within normal limits for the patient's age. IMPRESSION: 1. Normal appendix is visualized. 2. Small bowel containing right inguinal hernia. No evidence of obstruction. 3. Distal left ureteral stone causing mild hydronephrosis. RADIATION DOSE DELIVERED: 952.19mGy.cm Total DLP DATA REPOSITORY: All CT scans at this facility are submitted to the National Radiology Data Registry (NRDR) Dose Index Registry (DIR) with the [employer] ([employer]). RADIATION OPTIMIZATION: All CT scans at this facility use at least one of these dose optimization te chniques: automated exposure control; mA and/or kV adjustment per patient size (includes targeted exa ms where dose is matched to clinical indication); or iterative reconstruction.
[2021-12-04 13:32] LABS: Bilirubin Negative (Negative); Blood Moderate (Negative); Clarity Sl Cloudy (Clear); Glucose Negative (Negative); Ketones Negative (Negative); Leukocyte Esterase Moderate (Negative); Nitrite Positive (Negative); Specific Gravity >= 1.030 (1.005-1.025); Urobilinogen 0.2 EU/dL (Up TO 0.2)
[2021-12-04 13:39] LABS: Bacteria Many HPF (Negative); C & S Indicated? Yes; Casts Negative LPF (Negative); Crystals Negative HPF (Negative); Epithelial Cells Few HPF (Negative); Mucus Moderate (Negative); WBC >50 HPF (0-5)
[2021-12-04] MEDS: fentaNYL 100 MCG/2 ML VIAL 50 MCG IVP (13:42)
[2021-12-04 13:58] LABS: Abs Immature Grans 0.05 10^3/uL (0.0-0.06); Absolute Basophil Count 0.07 10^3/uL (0.0-0.2); Absolute Monocyte Count 0.43 10^3/uL (0.1-0.8); Basophils % 0.6; Eosinophils % 0.3; HCT 46.6 % (36.0-46.0); HGB 14.6 g/dL (11.2-15.7); Immature Grans % 0.4; Lymphocytes % 8.5; MCH 28.1 pg (27.0-33.0); MCHC 31.3 % (32.0-36.0); MCV 89.6 fL (80-95); MPV 9.2 fL (8.0-11.0); Monocytes % 3.7; Neutrophils % 86.5; Nucleated RBC 0 %; Platelet Count 298 10^3/uL (130-400); RDW 13.4 % (11.7-14.6); RDW-SD 44.2 fL; WBC 11.58 10^3/uL (4.4-10.8)
[2021-12-04 13:59] LABS: Absolute Eosinophil Count 0.03 10^3/uL (0.0-0.7); Absolute Lymphocyte Count 0.98 10^3/uL (1.2-3.4); Absolute Neutrophil Count 10.02 10^3/uL (1.2-6.7)
[2021-12-04 14:06] LABS: BUN 23 mg/dL (7-18); CREATININE 0.8 mg/dL (0.55-1.02); Calcium 9.9 mg/dL (8.5-10.1); Chloride 104 mmol/L (98-107); Glucose 119 mg/dL (74-106); Potassium 3.7 mmol/L (3.5-5.1); Sodium 142 mmol/L (136-145)
--- NOTE | 2021-12-04 14:36 | ED.GENADUL_ITS ---
Discharge Plan Discharge Details Chief Complaint: Abd Prob Primary Care Provider: Carlos Bird ED Provider: Suzy Neumann Home Meds and New Rx's Prescriptions: No Action meloxicam 7.5 mg tablet 15 mg PO DAILY 0RF acetaminophen [Tylenol Extra Strength] 500 mg tablet 1,000 mg PO Q6H PRN0RF cyclobenzaprine 5 mg tablet 5 mg PO BID PRN0RF atorvastatin 10 mg tablet 10 mg PO QHS 0RF Myrbetriq 50 mg tablet extended release 24 hr 50 mg PO DAILY Qty: 90 3RF ipratropium bromide 30 ML spray,non-aerosol 2 spry NS BID PRN0RF omeprazole magnesium [Prilosec OTC] 20 MG tablet,delayed release (DR/EC) 2 tab PO DAILY 0RF calcium carbonate 600 MG tablet 600 mg PO DAILY Qty: 2 0RF MULTIVITAMIN tablet PO DAILY 0RF omega 9-vms-kkd-fish oil [Fish Oil] 1,000 MG capsule 1,000 mg PO DAILY 0RF loratadine 10 mg tablet 10 mg PO DAILY 0RF Denavir 1 % cream 1 applic topical ONCE PRN0RF tumeric 500 mg PO DAILY 0RF pehgh-dcofv-4-lpc-uew-chyqay [krill oil] [id number] mg capsule 1 cap PO DAILY 0RF CBD oil 1,000 mg PO BID 0RF Discharge Data Discharge Date/Time-TO BE ENTERED AT DEPARTURE: 12/04/21 21:03 Medical Decision Making <LYNDA Carmichael - Last Filed: 12/05/21 09:32> To reduce inguinal hernia on 2 separate occasions, unfortunately unsuccessful 11.5 BUN 23 Evidence of urinary tract infection on exam Zosyn initiated On CT scan patient has evidence of bowel containing right inguinal hernia in addition to an obstructive 4 mm stone on left with secondary urinary tract infection although she is asymptomatic symptomatic with the latter Unfortunately we do not have urology available and patient will likely need transfer does not meet sepsis criteria care transferred to Suzy Neumann, nurse practitioner pending disposition Care of patient received. Case discussed with Dr Jeter from general surgery who evaluated patient and reduced hernia at bedside. patient reports resolution of pain, plan is for outpatient follow with general surgery. case is next discussed with urology at [facility] Dr Navneet Trevino who does recommend ureteral stent placement but they do not have capacity to accept so asked that I call other facilites. [facility] called: no urology [facility] called, case is discussed with DR Bassett who accepts the patient in transfer. patient has been NPO since 8 am today with a few ice chips here. made NPO now. she will be transported by ground EMS. she has received both ceftriaxone and zosyn prior to hand off. pain is resolved. denies urinary symptoms or left sided pain or CVA tenderness. plan of care discussed with patient who is in agreement with transfer. paperwork completed, radiology disc included in transfer packet Medical Records Medical records reviewed: Yes I reviewed the patient's medical records. Imaging Data Radiologic Study: Attestation: I personally reviewed and interpreted this imaging study as follows: Lab Data Lab results reviewed: Yes I reviewed the patient's lab results. <Suzy Neumann NP - Last Filed: 12/04/21 20:29> To reduce inguinal hernia on 2 separate occasions, unfortunately unsuccessful 11.5 BUN 23 Evidence of urinary tract infection on exam Zosyn initiated On CT scan patient has evidence of bowel containing right inguinal hernia in addition to an obstructive 4 mm stone on left with secondary urinary tract infection although she is not very symptomatic with the latter Unfortunately we do not have urology available and patient will likely need transfer does not meet sepsis criteria Félix transferred to Suzy Neumann, nurse practitioner pending disposition Care of patient received. Case discussed with Dr Jeter from general surgery who evaluated patient and reduced hernia at bedside. patient reports resolution of pain, plan is for outpatient follow with general surgery. case is next discussed with urology at [facility] Dr Navneet Trevino who does recommend ureteral stent placement but they do not have capacity to accept so asked that I call other facilites. [facility] called: no urology [facility] called, case is discussed with DR Bassett who accepts the patient in transfer. patient has been NPO since 8 am today with a few ice chips here. made NPO now. she will be transported by ground EMS. she has received both ceftriaxone and zosyn prior to hand off. pain is resolved. denies urinary symptoms or left sided pain or CVA tenderness. plan of care discussed with patient who is in agreement with transfer. paperwork completed, radiology disc included in transfer packet Medical Records Medical records reviewed: Yes I reviewed the patient's medical records. Imaging Data Radiologic Study: Imaging: CT Scan (abd/pelvis) Radiologist's impression: Exam(s) a CT:CT abdomen & pelvis w Exam(s) CT ABDOMEN ? PELVIS W EXAM:? CT ABDOMEN ? PELVIS W CLINICAL HISTORY: ? rlq abdominal pain, possible hernia, inguinal ? TECHNIQUE:? Imaging Protocol: Axial computed tomography images with coronal and sagittal reformatted images were created and reviewed CONTRAST MATERIAL:? Intravenous: Omnipaque 350 Contrast volume:100 mL Oral: No COMPARISON:? CT ABD ? PELVIS WITH CONTRAST from 02/08/2018 FINDINGS: ABDOMEN: Lung Bases: Normal where visualized. Small hiatal hernia. Liver: Normal density. No measurable mass. Portal, Superior Mesenteric, and Splenic Veins: Unremarkable.? Gallbladder and Biliary Tract: Cholelithiasis.? No biliary ductal dilatation.? Pancreas: Normal density, no abnormal calcifications or inflammatory process. Spleen: Normal. Adrenals: No masses seen. Kidneys: Normal size, contour and axis. There is a 6 mm stone in the distal ureter approximately 5 cm from the left UVJ.? There is mild hydronephrosis.? There is a nonobstructing stone in the lower pole of the left kidney.? No masses seen. Abdominal Aorta: Abdominal portion non-dilated. Atherosclerosis. Bowel: No obstruction or bowel wall thickening. Appendix is unremarkable. There is diverticulosis seen in the colon but no evidence of acute diverticulitis.? There is a loop of small bowel in a right inguinal hernia.? There is no evidence of obstruction or incarceration. Peritoneal Cavity: No ascites, collection or mesenteric inflammatory response.? No free air. Lymph Nodes: Within normal limits. Bones: Within normal limits for the patient's age.? Since the prior examination, Villegas rods are seen extending from the lower thoracic spine into the pelvis.? There is a marked left convex scoliosis.. Soft Tissues: Unremarkable. PELVIS: Bladder: Symmetric distention, no gross wall thickening. Reproductive Organs: Status post hysterectomy.? Lymph Nodes: Within normal limits. Bones: Within normal limits for the patient's age.? IMPRESSION: 1. Normal appendix is visualized. 2. Small bowel containing right inguinal hernia.? No evidence of obstruction. 3. Distal left ureteral stone causing mild hydronephrosis.? RADIATION DOSE DELIVERED:? 952.19mGy.cm Total DLP DATA REPOSITORY:? All CT scans at this facility are submitted to the National Radiology Data Registry (NRDR) Dose Index Registry (DIR) with the [employer] (A[employer]). RADIATION OPTIMIZATION:? All CT scans at this facility use at least one of these dose optimization techniques: automated exposure control; mA and/or kV adjustment per patient size (includes targeted exams where dose is matched to clinical indication); or iterative reconstruction. [id number]: Total DLP =? ? 0.00 mGy-cm Ordered By:? Radha Mendoza Lab Data Lab results reviewed: Yes I reviewed the patient's lab results. Labs: Laboratory Results - last 24 hr 12/04/21 12/04/21 12/04/21 13:27 13:38 13:38 WBC 11.58 H RBC 5.20 Hgb 14.6 Hct 46.6 H MCV 89.6 MCH 28.1 MCHC 31.3 L RDW 13.4 Plt Count 298 MPV 9.2 Immature Gran % 0.4 Neutrophils % 86.5 Lymphocytes % 8.5 Monocytes % 3.7 Eosinophils % 0.3 Basophils % 0.6 Nucleated RBC % 0 Absolute Neutrophils 10.02 H Absolute Lymphocytes 0.98 L Absolute Monocytes 0.43 Absolute Eosinophils 0.03 Absolute Basophils 0.07 Sodium 142 Potassium 3.7 Chloride 104 Carbon Dioxide 28.0 Anion Gap 10.0 BUN 23 H Creatinine 0.8 Estimated GFR/1.73 m2 >= 60.00 Glucose 119 H Calcium 9.9 Urine Color Yellow Urine Clarity Sl Cloudy Urine pH 6.0 Ur Specific Cassoday >= 1.030 H Urine Protein 100 H Urine Ketones Negative Urine Blood Moderate H Urine Nitrite Positive H Urine Bilirubin Negative Urine Urobilinogen 0.2 Ur Leukocyte Esterase Moderate H Urine RBC 10-20 H Urine WBC >50 H Ur Epithelial Cells Few Urine Crystals Negative Urine Bacteria Many Urine Casts Negative Urine Mucus Moderate Ur Culture Indicated? Yes Urine Glucose Negative HPI <LYNDA Carmichael - Last Filed: 12/05/21 09:32> General Date/Time Provider Initiated Documentation: 12/04/21 13:17 . HPI Narrative: This 71-year-old female presents with right lower quadrant abdominal pain which started after shoveling today. States the pain radiates into her groin. She denies any urinary symptoms. She denies any fever or chills. She was nauseous and lightheaded when the pain began. She states she had a bowel movement was having the pain when improved, however it persisted which is why she presents. She denies prior history of similar symptoms in the past. She is status post total hysterectomy but denies any additional abdominal surgeries. Denies prior history of bowel obstruction. Related Data Home Medications Medication Instructions Recorded Confirmed ipratropium bromide 21 mcg (0.03 2 spry NS BID PRN spray 07/01/16 12/04/21 %) nasal spray omeprazole magnesium 20 mg 2 tab PO DAILY tab-cap 07/01/16 12/04/21 tablet,delayed release (Prilosec OTC) calcium carbonate 600 mg calcium 600 mg PO DAILY #2 09/23/16 12/04/21 (1,500 mg) tablet omega 8-dcz-jrf-fish oil 1,000 mg 1,000 mg PO DAILY 05/01/17 12/04/21 (120 mg-180 mg) capsule (Fish Oil) loratadine 10 mg tablet 10 mg PO DAILY 08/10/20 12/04/21 penciclovir 1 % topical cream 1 applic TOPICAL ONCE PRN g 08/10/20 12/04/21 (Denavir) krill 1 cap PO DAILY 09/10/20 12/04/21 sfz-dl-4-bvn-lrb-sodopqofejfug 300 mg-90 mg-24 mg-50 mg capsule (krill oil) tumeric 500 mg PO DAILY 09/10/20 12/04/21 CBD oil 1,000 mg PO BID 10/08/20 12/04/21 acetaminophen 500 mg tablet 1,000 mg PO Q6H PRN tab 10/15/20 12/04/21 (Tylenol Extra Strength) meloxicam 7.5 mg tablet 15 mg PO DAILY tab 04/13/21 12/04/21 atorvastatin 10 mg tablet 10 mg PO QHS 07/27/21 12/04/21 cyclobenzaprine 5 mg tablet 5 mg PO BID PRN tab 07/27/21 12/04/21 mirabegron 50 mg tablet,extended 50 mg PO DAILY #90 tab 07/27/21 12/04/21 release 24 hr (Myrbetriq) Previous Rx's Medication Instructions Recorded mirabegron 50 mg tablet,extended 50 mg PO DAILY #90 tab 07/27/21 release 24 hr (Myrbetriq) Allergies Allergy/AdvReac Type Severity Reaction Status Date / Time cephalexin monohydrate Allergy Severe GI Bleeding Unverified 12/04/21 13:00 [From Keflex] General Stated Complaint: Abd Prob INDIRA: 3 Review of Systems <LYNDA Carmichael - Last Filed: 12/05/21 09:32> All systems reviewed & are unremarkable except as noted in HPI and below PFSH <LYNDA Carmichael - Last Filed: 12/05/21 09:32> All Active Problems (Updated 12/04/21 @ 17:25 by Nani Gandara DO) Partial obstruction of the urinary tract (Acute) Urinary tract infection (Acute) Femoral hernia of right side (Acute) Metatarsalgia of both feet (Acute) Plantar fasciitis, bilateral (Acute) Achilles tendinosis of both lower extremities (Acute) Tubular adenoma (Acute ~10/2020) Colon polyp, hyperplastic (Acute ~10/2020) Hemorrhoid (Acute) internal and external Adenomatous colon polyp (Acute) Diverticula of colon (Acute) severe Rectocele (Acute) Arthritis of carpometacarpal (CMC) joint of right thumb (Acute) Mixed stress and urge urinary incontinence (Acute) Medical History (Updated 12/04/21 @ 17:25 by Nani Gandara DO) Arthritis of left acromioclavicular joint Arthritis of left shoulder region Arthritis of right acromioclavicular joint Arthritis of right shoulder region Bladder prolapse Breast CA Chronic back pain Fecal incontinence Fibromyalgia GERD (gastroesophageal reflux disease) History of colon polyps History of nephrolithiasis Hx of fracture of wrist Lower back pain Nerve damage SHANNAN (obstructive sleep apnea) Osteopenia Sessile colonic polyp 10/17/2012 Walko Severe scoliosis Tendinitis of long head of biceps brachii of both shoulders Urge and stress incontinence Surgical History (Updated 11/19/20 @ 08:14 by Estela Morgan RN) Abdominal hysterectomy (~1991) BLADDER REPAIR (~2007) Breast, Mastectomy Bilateral (~2008) BILAT WITH RECONSTRUCTION History of back surgery History of colonoscopy with polypectomy (~10/30/20) History of hysterectomy Hx of bilateral mastectomy Ligation of fallopian tube (~1977) LUMP REMOVAL FROM CHEST WALL (~2012) POLYP REMOVAL FROM VOCAL CORDS (~1989) RIGHT GANGLION CYST REMOVAL (~2002) RIGHT THUMB DEGENERATIVE ARTHRITIS REPAIR (~2002) Rotator Cuff Repair (~1999) Tonsillectomy WRIST FRACTURE REPAIR (~1960) REMOVED TENDON AND CHIPPED BONE IN 2003 Social History (Updated 10/15/20 @ 12:53 by LYNDA Linda) Smoking/Tobacco Use Status: Never Smoking risk assessment performed?: Yes Alcohol Intake: current Alcohol Intake frequency: holidays/special occasions only Drug use: Never Substance use type: does not use Current gender identity: female Do you feel safe at home: Yes Do you feel safe in your relationship?: Yes Female Reproductive History Menstrual Menopause type: surgical Exam <LYNDA Carmichael - Last Filed: 12/05/21 09:32> Const General: cooperative and well groomed Orientation: alert and oriented x3 Eyes Sclera: sclerae normal Resp Effort & Inspection: normal respiratory effort Cardio Rate: regular rate Rhythm: regular rhythm Other: Distal pulses intact GI Other: Suprapubic tenderness, no CVA tenderness Other: Inguinal hernia noted, no discoloration Skin General skin exam: no rashes or lesions noted Neuro General: patient alert and patient oriented x3 Extrem Other: Distal pulses intact Course <LYNDA Carmichael - Last Filed: 12/05/21 09:32> Vital Signs Vital signs: Vital Signs Pulse 69 12/04/21 12:57 Respiratory Rate 14 12/04/21 12:57 Blood Pressure 123/48 L 12/04/21 12:57 Pulse Oximetry 96 12/04/21 12:57 Pulse 69 12/04/21 12:57 Respiratory Rate 14 12/04/21 12:57 Respiratory Effort Non-Labored 12/04/21 13:02 Blood Pressure 123/48 L 12/04/21 12:57 Blood Pressure Position Sitting 12/04/21 12:57 Pulse Oximetry 96 12/04/21 12:57 Oxygen Delivery Method Room Air 12/04/21 12:57 Oxygen Flow Rate 0 12/04/21 12:57 Pain Level 6 12/04/21 13:42 Lab/Test Results Lab/Test Results: 12/04/21 13:27 Urine - Reflex from Ua Urine Culture - Pending Laboratory Tests Range/Units 12/04/21 12/04/21 12/04/21 13:27 13:38 13:38 WBC (4.4-10.8) 10^3/uL 11.58 H RBC (3.93-5.22) 10^6/uL 5.20 Hgb (11.2-15.7) g/dL 14.6 Hct (36.0-46.0) % 46.6 H MCV (80-95) fL 89.6 MCH (27.0-33.0) pg 28.1 MCHC (32.0-36.0) % 31.3 L RDW (11.7-14.6) % 13.4 Plt Count (130-400) 10^3/uL 298 MPV (8.0-11.0) fL 9.2 Immature Gran % 0.4 Neutrophils % 86.5 Lymphocytes % 8.5 Monocytes % 3.7 Eosinophils % 0.3 Basophils % 0.6 Nucleated RBC % % 0 Absolute Neutrophils (1.2-6.7) 10^3/uL 10.02 H Absolute Lymphocytes (1.2-3.4) 10^3/uL 0.98 L Absolute Monocytes (0.1-0.8) 10^3/uL 0.43 Absolute Eosinophils (0.0-0.7) 10^3/uL 0.03 Absolute Basophils (0.0-0.2) 10^3/uL 0.07 Sodium (136-145) mmol/L 142 Potassium (3.5-5.1) mmol/L 3.7 Chloride (98-107) mmol/L 104 Carbon Dioxide (21.0-32.0) mmol/L 28.0 Anion Gap (3-11) mmol/L 10.0 BUN (7-18) mg/dL 23 H Creatinine (0.55-1.02) mg/dL 0.8 Estimated GFR/1.73 m2 (mL/min/1.73m2) >= 60.00 Glucose (74-106) mg/dL 119 H Calcium (8.5-10.1) mg/dL 9.9 Urine Color (Yellow) Yellow Urine Clarity (Clear) Sl Cloudy Urine pH (5-8) 6.0 Ur Specific Cassoday (1.005-1.025) >= 1.030 H Urine Protein (Negative) mg/dL 100 H Urine Ketones (Negative) mg/dL Negative Urine Blood (Negative) Moderate H Urine Nitrite (Negative) Positive H Urine Bilirubin (Negative) Negative Urine Urobilinogen (Up TO 0.2) EU/dL 0.2 Ur Leukocyte Esterase (Negative) Moderate H Urine RBC (0-2) HPF 10-20 H Urine WBC (0-5) HPF >50 H Ur Epithelial Cells (Negative) HPF Few Urine Crystals (Negative) HPF Negative Urine Bacteria (Negative) HPF Many Urine Casts (Negative) LPF Negative Urine Mucus (Negative) Moderate Ur Culture Indicated? Yes Urine Glucose (Negative) mg/dL Negative Sign Out <LYNDA Carmichael - Last Filed: 12/05/21 09:32> Sign Out Data: Sign Out Comment: inguinal hernia bowel containing, uti with ureterolithiasis pending surgical assessment and possible transfer Last updated by Radha Mendoza PA at 12/04/21 17:31
[2021-12-04] MEDS: Omnipaque 350 MG/ML 100 ML BTL IJ (15:00)
[2021-12-04] MEDS: MORPHine 4 MG/ML SYR (15:32)
--- NOTE | 2021-12-04 15:32 | DI.VRAD_ITS ---
PROCEDURE INFORMATION: Exam: CT Abdomen And Pelvis With Contrast Exam date and time: 12/04/2021 1:19 PM Age: 71 years old Clinical indication: Other: Rlq abd pain possible hernia inguinal TECHNIQUE: Imaging protocol: Computed tomography of the abdomen and pelvis with contrast. COMPARISON: CT ABD PELVIS WITH CONTRAST 02/08/2018 4:16 PM FINDINGS: Diaphragm: Small hiatal hernia. Liver: Normal. No mass. Gallbladder and bile ducts: Gallstones. Pancreas: Normal. No ductal dilation. Spleen: Normal. No splenomegaly. Adrenal glands: Normal. No mass. Kidneys and ureters: Nonobstructing left renal lower pole calculus. There is mild left hydronephrosis and hydroureter. Series 4, image 68 there is a distal left ureteral obstructing calculus measuring nearly 4 mm in diameter. Stomach and bowel: Diverticulosis without diverticulitis. Appendix: The appendix is well seen, within normal limits. Intraperitoneal space: Unremarkable. No free air. No significant fluid collection. Vasculature: Unremarkable. No abdominal aortic aneurysm. Lymph nodes: Unremarkable. No enlarged lymph nodes. Urinary bladder: Unremarkable as visualized. Reproductive: Status post hysterectomy. Bones/joints: Status post multilevel thoracolumbar posterior fusion. Lumbar levoscoliosis present. Soft tissues: Postsurgical change noted in the breasts bilaterally, presumed reconstruction surgery. There is a bowel containing right inguinal hernia. There is no abnormal bowel distention appreciated. Other findings: Mild pelvic floor laxity. IMPRESSION: 1. Bowel containing right inguinal hernia. No definite obstruction appreciated at this time. 2. Distal left ureteral at least partially obstructing calculus. Dictated and Authenticated by: Irene Mccormick MD. Ordering:CHARMAINE Garcia MD
[2021-12-04] MEDS: HYDROmorphone 2 MG/ML VIAL 0.5 MG IVP (16:18)
[2021-12-04] MEDS: cefTRIAXone 1 GM/50 ML BAG IVPB (16:48)
[2021-12-04] MEDS: PIPERACILLIN/TAZO 3.375 GM in Normal Saline 50 ML IVPB (17:13)
--- NOTE | 2021-12-04 17:23 | SCONE_ITS ---
Date of service: 12/04/21 Time of Service: 17:23 Assessment and Plan Assessment and plan (1) Femoral hernia of right side: Status: Acute Assessment and plan: -Reduced in the ER, patient currently without bulging, pain or discomfort on the right side -Not ideal to operate and place mesh with active UTI, possible transfer for urology due to partially obstructing kidney stone also found -Should hernia recur, will need to repair primarily with suture only while UTI being treated -No lifting, shoveling, bearing down to prevent hernia from recurring discussed with patient (2) Urinary tract infection: Status: Acute (3) Partial obstruction of the urinary tract: Status: Acute History of Present Illness Narrative: 71 year old female who developed right groin discomfort after shoveling today. She also reports straining to use the bathroom without relief. She underwent basic laboratory studies and a CT of the abdomen and pelvis and was found to have a partially obstructing kidney stone as well as a UTI and right likely femoral hernia. Attempt to reduce hernia in the ER was unsuccessful therefore I was asked to the see the patient in consultation. She denies ever noticing any buldge or discomfort in this location in the past and denies any acute changes such as pain prior to noticing the buldge today. Consults Consult date: 12/04/21 Requesting physician: Radha Mendoza Review of Systems Constitutional Constitutional: Reports as per HPI, Reports system reviewed and no additional complaints, except as documented, Denies anorexia and Denies fever(s) Gastrointestinal Gastrointestinal: Denies abdominal pain, Denies cramping, Denies diarrhea, Denies nausea and Denies vomiting Comments: right groin pain Genitourinary Genitourinary: Denies difficulty voiding, Denies dysuria and Denies urinary hesitancy Integumentary/Breasts Skin/Breast: Reports system reviewed and no additional complaints, except as documented PFSH All Active Problems (Updated 12/04/21 @ 17:25 by Nani Gandara DO) Partial obstruction of the urinary tract (Acute) Urinary tract infection (Acute) Femoral hernia of right side (Acute) Metatarsalgia of both feet (Acute) Plantar fasciitis, bilateral (Acute) Achilles tendinosis of both lower extremities (Acute) Tubular adenoma (Acute ~10/2020) Colon polyp, hyperplastic (Acute ~10/2020) Hemorrhoid (Acute) internal and external Adenomatous colon polyp (Acute) Diverticula of colon (Acute) severe Rectocele (Acute) Arthritis of carpometacarpal (CMC) joint of right thumb (Acute) Mixed stress and urge urinary incontinence (Acute) Medical History (Updated 12/04/21 @ 17:25 by Nani Gandara DO) Arthritis of left acromioclavicular joint Arthritis of left shoulder region Arthritis of right acromioclavicular joint Arthritis of right shoulder region Bladder prolapse Breast CA Chronic back pain Fecal incontinence Fibromyalgia GERD (gastroesophageal reflux disease) History of colon polyps History of nephrolithiasis Hx of fracture of wrist Lower back pain Nerve damage SHANNAN (obstructive sleep apnea) Osteopenia Sessile colonic polyp 10/17/2012 Walko Severe scoliosis Tendinitis of long head of biceps brachii of both shoulders Urge and stress incontinence Surgical History (Updated 11/19/20 @ 08:14 by Estela Morgan RN) Abdominal hysterectomy (~1991) BLADDER REPAIR (~2007) Breast, Mastectomy Bilateral (~2008) BILAT WITH RECONSTRUCTION History of back surgery History of colonoscopy with polypectomy (~10/30/20) History of hysterectomy Hx of bilateral mastectomy Ligation of fallopian tube (~1977) LUMP REMOVAL FROM CHEST WALL (~2012) POLYP REMOVAL FROM VOCAL CORDS (~1989) RIGHT GANGLION CYST REMOVAL (~2002) RIGHT THUMB DEGENERATIVE ARTHRITIS REPAIR (~2002) Rotator Cuff Repair (~1999) Tonsillectomy WRIST FRACTURE REPAIR (~1960) REMOVED TENDON AND CHIPPED BONE IN 2003 Social History (Updated 10/15/20 @ 12:53 by LYNDA Linda) Smoking/Tobacco Use Status: Never Smoking risk assessment performed?: Yes Alcohol Intake: current Alcohol Intake frequency: holidays/special occasions only Drug use: Never Substance use type: does not use Current gender identity: female Do you feel safe at home: Yes Do you feel safe in your relationship?: Yes Female Reproductive History Menstrual Menopause type: surgical Exam Const General: cooperative, healthy appearing and no acute distress Nutritional Appearance: average body habitus HENMD Head: normal to inspection, normocephalic and atraumatic Resp Effort & Inspection: normal respiratory effort, able to speak in complete sentences, no audible wheezes and no respiratory distress Cardio Rate: regular rate Rhythm: regular rhythm GI Inspection: normal to inspection, non-distended and scar (from previous TRAM flap) Palpation: soft, no guarding and tender (right groin, hernia able to be reduced w/ trendelenberg) Percussion: normal to percussion Skin General skin exam: no rashes or lesions noted Neuro General: patient alert, patient awake and patient oriented x3 Results Last Vital Signs Pulse 69 12/04/21 12:57 Resp 14 12/04/21 12:57 BP 123/48 L 12/04/21 12:57 Pulse Ox 96 12/04/21 12:57 Labs Result diagrams: 12/04/21 13:38 12/04/21 13:38 Labs: Laboratory Results - last 24 hr 12/04/21 12/04/21 12/04/21 13:27 13:38 13:38 WBC 11.58 H RBC 5.20 Hgb 14.6 Hct 46.6 H MCV 89.6 MCH 28.1 MCHC 31.3 L RDW 13.4 Plt Count 298 MPV 9.2 Immature Gran % 0.4 Neutrophils % 86.5 Lymphocytes % 8.5 Monocytes % 3.7 Eosinophils % 0.3 Basophils % 0.6 Nucleated RBC % 0 Absolute Neutrophils 10.02 H Absolute Lymphocytes 0.98 L Absolute Monocytes 0.43 Absolute Eosinophils 0.03 Absolute Basophils 0.07 Sodium 142 Potassium 3.7 Chloride 104 Carbon Dioxide 28.0 Anion Gap 10.0 BUN 23 H Creatinine 0.8 Estimated GFR/1.73 m2 >= 60.00 Glucose 119 H Calcium 9.9 Urine Color Yellow Urine Clarity Sl Cloudy Urine pH 6.0 Ur Specific [place] >= 1.030 H Urine Protein 100 H Urine Ketones Negative Urine Blood Moderate H Urine Nitrite Positive H Urine Bilirubin Negative Urine Urobilinogen 0.2 Ur Leukocyte Esterase Moderate H Urine RBC 10-20 H Urine WBC >50 H Ur Epithelial Cells Few Urine Crystals Negative Urine Bacteria Many Urine Casts Negative Urine Mucus Moderate Ur Culture Indicated? Yes Urine Glucose Negative
[2021-12-04 18:13] VITALS: TEMP 36.6
[2021-12-04 19:08] VITALS: BP 143/63; PULSE 83; RESP 16; TEMP 36.9; O2SAT 94
[2021-12-04 19:11] VITALS: RESP 16
[2021-12-04 20:28] LABS: Source Nasal/Nares
[2021-12-04 20:53] VITALS: BP 143/65; PULSE 91; RESP 18; TEMP 37.1; O2SAT 96
[2021-12-04 21:07] LABS: COVID-19 PCR Negative (Negative)
[2021-12-04 21:18] VITALS: BP 123/48; PULSE 69; RESP 18; TEMP 37.1; O2SAT 96
== END 2021-12-04 21:03 ==
PROVIDERS: Physician Assistant; Emergency Provider Nurse Practitioner Acute Care; PCP Physician Assistant Medical
DX: K41.90 Unilateral femoral hernia, without obstruction or gangrene, not specified as recurrent (principal); N39.0 Urinary tract infection, site not specified; N13.9 Obstructive and reflux uropathy, unspecified
CPT/HCPCS: 36415; 80048; 87077; 87635; 96365; 96367; 96375; 99283; 99285; 74177; 81003; 81015; 85025; 87086; 87186; J0696; J2270; J2543; J3010; J3490

== ENCOUNTER 2021-12-15 17:07 | Outpatient (REF) | payer MEDICARE, OTHER, SELFPAY | END 2021-12-15 17:08 | disposition home or self-care (01) | LOC: LBN 17:07 | PROVIDERS: PCP Physician Assistant Medical; Visit Provider Urology | DX: N39.0 Urinary tract infection, site not specified (principal) | CPT/HCPCS: 87086 ==

== ENCOUNTER 2021-12-15 18:05 | Outpatient (REF) | payer MEDICARE, OTHER, SELFPAY | END 2021-12-15 18:06 | disposition home or self-care (01) | LOC: LBN 18:05 | PROVIDERS: PCP Physician Assistant Medical; Visit Provider Urology ==

== ENCOUNTER → 2022-02-10 09:48 | Outpatient (BNVA) | payer MEDICARE, OTHER, SELFPAY | PROVIDERS: PCP Physician Assistant Medical; Visit Provider Nurse Practitioner Gerontology | DX: N39.46 Mixed incontinence (principal) | CPT/HCPCS: 51798; 99214 ==

== ENCOUNTER 2022-07-19 18:36 | Outpatient (REF) | payer MEDICARE, OTHER, SELFPAY ==
[2022-07-19 16:02] LABS: Hemoglobin A1C 5.9 % (<5.7)
[2022-07-19 16:15] LABS: ALT 28 U/L (14-59); AST 27 U/L (15-37); Alkaline Phosphatase 55 U/L (46-116); Anion Gap 9.2 mmol/L (3-11); BUN 24 mg/dL (7-18); Bilirubin, Total 0.4 mg/dL (0.2-1.0); CO2 28.8 mmol/L (21.0-32.0); CREATININE 0.6 mg/dL (0.55-1.02); Calcium 9.9 mg/dL (8.5-10.1); Calculated LDL 79 mg/dL (<100); Chloride 104 mmol/L (98-107); Cholesterol 156 mg/dL (<200); Glucose 90 mg/dL (74-106); HDL Cholesterol 62 mg/dL (40-60); Potassium 3.7 mmol/L (3.5-5.1); Sodium 142 mmol/L (136-145); Total Protein 7.7 g/dL (6.4-8.2); Triglyceride 77 mg/dL (<150)
== END 2022-07-19 18:37 | disposition home or self-care (01) ==
LOC: NCHCN 18:36
PROVIDERS: PCP Physician Assistant Medical; Visit Provider Physician Assistant Medical
DX: E78.5 Hyperlipidemia, unspecified (principal); R73.03 Prediabetes
CPT/HCPCS: 80053; 80061; 83036

== ENCOUNTER 2023-02-07 12:03 | Outpatient (CLI) | payer MEDICARE, OTHER, SELFPAY | END 2023-02-07 12:04 | disposition home or self-care (01) | LOC: DIORS 12:03 | PROVIDERS: PCP Physician Assistant Medical; Referring Provider Physician Assistant Medical; Visit Provider Student in an Organized Health Care Education/Training Program | DX: M19.012 Primary osteoarthritis, left shoulder (principal) | CPT/HCPCS: 20610; 99213; J1030 ==

== ENCOUNTER 2023-07-05 20:37 | Outpatient (REF) | payer MEDICARE, SELFPAY ==
[2023-07-05 22:57] LABS: ALT 29 U/L (14-59); AST 17 U/L (15-37); Albumin 3.9 g/dL (3.4-5.0); Alkaline Phosphatase 69 U/L (46-116); BUN 21 mg/dL (7-18); Bilirubin, Total 0.2 mg/dL (0.2-1.0); CO2 28.9 mmol/L (21.0-32.0); CREATININE 0.8 mg/dL (0.55-1.02); Calcium 9.4 mg/dL (8.5-10.1); Calculated LDL 60 mg/dL (<100); Cholesterol 141 mg/dL (<200); Estimated GFR 79.22 (mL/min/1.73m2); Glucose 115 mg/dL (74-106); HDL Cholesterol 49 mg/dL (40-60); Total Protein 7.5 g/dL (6.4-8.2); Triglyceride 161 mg/dL (<150)
[2023-07-05 23:24] LABS: Chloride 103 mmol/L (98-107); Potassium 3.8 mmol/L (3.5-5.1); Sodium 139 mmol/L (136-145)
[2023-07-05 23:27] LABS: Anion Gap 7.1 mmol/L (3-11)
== END 2023-07-05 20:38 | disposition home or self-care (01) ==
LOC: NCHCN 20:37
PROVIDERS: PCP Physician Assistant Medical; Visit Provider Physician Assistant Medical
DX: R73.03 Prediabetes (principal); E78.5 Hyperlipidemia, unspecified; I10 Essential (primary) hypertension
CPT/HCPCS: 80053; 80061; 83036